=== PATIENT | female | born 1965 | race American Indian/Alaskan Native ===

== ENCOUNTER 2018-10-06 12:09 | Outpatient (CLI) | payer MEDICARE ==
--- NOTE | 2018-10-07 09:43 | Mammography Report ---
BILATERAL DIGITAL SCREENING MAMMOGRAM WITH CAD INDICATION: Screening. COMPARISONS: 2017 and 2018 mammograms from [facility] FINDINGS: Craniocaudal and mediolateral oblique views of both breasts were obtained using 2-D digital acquisition. In addition to standard review, the examination was analyzed for possible abnormalities using a computer-assisted detection device (iCAD). The breast tissue is heterogeneously dense, which may obscure small masses. Bilateral asymmetries are new and require additional imaging. No architectural distortion or suspicio us calcifications. IMPRESSION: Bilateral parenchymal asymmetries requiring additional workup. Recommend recall for bilateral spot co mpression views and bilateral breast ultrasound if needed. BI-RADS CATEGORY 0: INCOMPLETE - NEED ADDITIONAL IMAGING EVALUATION AND/OR PRIOR MAMMOGRAMS FOR COMP ARISON Information is entered into a reminder system for a target due date for the next mammogram. The resul ts and recommendations were sent to the patient by mail. Signer Name: Efraín Lake MD Signed: 10/07/2018 9:39 AM Workstation Name: [id number]
== END 2018-10-06 12:10 | disposition home or self-care (01) ==
LOC: MAMMO 12:09
PROVIDERS: ATTEND Family Medicine
DX: Z12.31 Encounter for screening mammogram for malignant neoplasm of breast (principal)
CPT/HCPCS: 77067

== ENCOUNTER 2018-11-13 08:52 | Outpatient (CLI) | payer MEDICARE ==
--- NOTE | 2018-11-13 10:30 | Mammography Report ---
DIGITAL DIAGNOSTIC MAMMOGRAM, 11/13/2018 INDICATION: Bilateral asymmetric densities. TECHNIQUE: Digital bilateral mammographic imaging was performed. Spot compression views were obtaine d. COMPARISON: 10/06/2018 and 09/16/2016 FINDINGS: Breast Density: The breasts are heterogeneously dense, which may obscure small masses. Focal asymmetric densities seen bilaterally on screening mammography do not persist on additional spo t compression imaging. There is no significant change compared with prior mammogram dated 09/16/2016. IMPRESSION: BI-RADS Category 1: Negative. Recommend routine screening mammography in one year. A "normal" or negative report should not discourage follow up or biopsy of a clinically significant f inding. A written summary of these findings will be mailed to the patient. The patient will be entered into a mammography reporting system which will generate a reminder letter for the patient's next appointmen t at the appropriate interval. According to the [employer], yearly mammograms are recommended starting at age 40 and continuing as long as a woman is in good health. Breast MRI is recommended for women with an bulmaro roximately 20-25% or greater lifetime risk of breast cancer, including women with a strong family his tory of breast or ovarian cancer and women who have been treated for Hodgkin's disease. Signer Name: Maria Luisa Fulton MD Signed: 11/13/2018 10:26 AM Workstation Name: [email or web address]
== END 2018-11-13 08:53 | disposition home or self-care (01) ==
LOC: MAMMO 08:52
PROVIDERS: ATTEND Physician Assistant
DX: R92.2 Inconclusive mammogram (principal)
CPT/HCPCS: 77066